=== PATIENT | male | born 1970 | race Caucasian/White ===

== ENCOUNTER 2018-07-02 13:18 | Emergency (ER) | payer MEDICAID ==
[~2018-07-02] VITALS: Ht 170.2 cm; Wt 68.2 kg
[~2018-07-02 13:18] MED LIST: HYDR-3705 PO
[2018-07-02] MEDS ORDERED: ChlordiazePOXIDE HCL 25 MG CAPSULE PO ONE (14:45)
[2018-07-02 14:46] VITALS: BP 145/91
[2018-07-02] MEDS ORDERED: IBUPROFEN 600 MG TABLET PO ONE (15:15)
== END 2018-07-02 15:05 | disposition home or self-care (01) ==
LOC: EMS 13:19
DX: F19.939 Other psychoactive substance use, unspecified with withdrawal, unspecified (principal); F41.9 Anxiety disorder, unspecified
CPT/HCPCS: 99283; 99284

== ENCOUNTER 2018-07-03 13:50 | Emergency (ER) | payer MEDICAID ==
[~2018-07-03] VITALS: Ht 170.2 cm; Wt 68.2 kg
[2018-07-03 15:30] VITALS: BP 147/89
== END 2018-07-03 15:33 | disposition home or self-care (01) ==
LOC: EMS 13:51
DX: F10.230 Alcohol dependence with withdrawal, uncomplicated (principal); F10.280 Alcohol dependence with alcohol-induced anxiety disorder; F17.210 Nicotine dependence, cigarettes, uncomplicated
CPT/HCPCS: 99283